=== PATIENT | female | born 1960 | race Caucasian/White ===

== ENCOUNTER → 2017-11-03 | Outpatient (REF) | payer OTHER | LOC: M SFHCWAGY 17:00 | DX: N76.6 Ulceration of vulva (principal) ==

== ENCOUNTER → 2018-02-03 | Outpatient (CLI) | payer OTHER | LOC: M WHC 10:36 | DX: Z12.31 Encounter for screening mammogram for malignant neoplasm of breast (principal); Z80.0 Family history of malignant neoplasm of digestive organs; Z80.41 Family history of malignant neoplasm of ovary | CPT/HCPCS: 77067 ==

== ENCOUNTER → 2018-02-03 | Outpatient (REF) | payer OTHER ==
[2018-02-06 10:12] LABS: HPV HYBRID CAPTURE II Positive (Negative)
== END ==
LOC: M SFHCWAGY 11:03
DX: Z12.4 Encounter for screening for malignant neoplasm of cervix (principal)

== ENCOUNTER 2018-02-05 11:59 | Day surgery (SDC) | payer OTHER ==
[2018-02-05] MEDS ORDERED: MIDAZOLAM INJ 2 MG/2 ML VIAL (J2250) As Ordered (12:08)
[2018-02-05] MEDS ORDERED: fentaNYL 100 MCG/2 ML INJECTION (J3010) As Ordered (12:08)
[2018-02-05] MEDS ORDERED: PROPOFOL 200 MG/20 ML VIAL As Ordered (12:08)
[2018-02-05] MEDS ORDERED: LIDOCAINE 2% INJ 100 MG/5 ML SDV (FOR ANES.) As Ordered (12:08)
[2018-02-05 12:36] LABS: HEMATOCRIT 43.2 % (36.0-47.0); HEMOGLOBIN 14.1 g/dl (12.0-15.5); MEAN CORPUSCULAR HEMOGLOBIN 30.9 pg (27.0-33.0); MEAN CORPUSCULAR HGB CONC 32.6 g/dl (32.0-36.5); MEAN CORPUSCULAR VOLUME 94.7 fl (80.0-96.0); PLATELET COUNT, AUTOMATED 289 10^3/uL (150-450); RED BLOOD COUNT 4.56 10^6/uL (4.00-5.40); RED CELL DISTRIBUTION WIDTH 13.8 % (11.5-14.5); WHITE BLOOD COUNT 10.1 10^3/uL (4.0-10.0)
[2018-02-05] MEDS: LR 1,000 ML IV (12:51)
[2018-02-05] MEDS ORDERED: ONDANSETRON 4MG/2ML VIAL (J2405) As Ordered (13:33)
[2018-02-05] MEDS ORDERED: KETOROLAC 60 MG/2 ML VIAL (J1885) As Ordered (13:33)
[2018-02-05] MEDS ORDERED: dexameTHASONE 4 MG/ML 1ML VIAL (J1100) As Ordered (13:47)
[2018-02-05] MEDS ORDERED: SUCCINYLCHOLINE 100 MG/5 ML SYRINGE (J0330) As Ordered (13:47)
[2018-02-05] MEDS ORDERED: fentaNYL 100 MCG/2 ML INJECTION (J3010) IV (14:30)
[2018-02-05] MEDS ORDERED: ONDANSETRON 4MG/2ML VIAL (J2405) IV (14:30)
[2018-02-05] MEDS ORDERED: PERCOCET 5MG/325MG TAB PO ×2 (14:30)
[2018-02-05] MEDS ORDERED: MEPERIDINE INJ 25 MG/ML VIAL (J2175) IV (14:30)
[2018-02-05] MEDS ORDERED: LR 1,000 ML IV (14:30)
[2018-02-05] MEDS ORDERED: METOCLOPRAMIDE INJ 10MG/2ML VIAL (J2765) IV (14:30)
[2018-02-05] MEDS: ALBUTEROL SULFATE 2.5 MG/0.5 ML INH NEB SOLN INH (14:38)
[2018-02-05] MEDS ORDERED: KETOROLAC 30 MG/ML VIAL (J1885) IV (20:00)
== END 2018-02-05 16:35 | disposition home or self-care (01) ==
LOC: M SDC 11:59
DX: N95.0 Postmenopausal bleeding (principal); N84.0 Polyp of corpus uteri; F45.8 Other somatoform disorders; F17.200 Nicotine dependence, unspecified, uncomplicated; M12.9 Arthropathy, unspecified; M54.2 Cervicalgia; Z98.51 Tubal ligation status; Z88.8 Allergy status to other drugs, medicaments and biological substances; Z79.899 Other long term (current) drug therapy
CPT/HCPCS: 58558

== ENCOUNTER → 2019-01-25 | Outpatient (CLI) | payer OTHER ==
[~2019-01-25] MED LIST: ARTH650T11 PO; BIOT50004 PO; DULC5TAB PO; ECHI500C5 PO; EXCETAB80 PO; MULT1TAB10 PO; VITA100067 PO; [UNRECOGNIZED DRUG - CODE] PO
--- NOTE | 2019-01-25 22:09 | ECGEPIP ---
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
== END ==
LOC: M EKG 08:53
PROVIDERS: ATTEND Orthopaedic Surgery Hand Surgery
DX: Z01.810 Encounter for preprocedural cardiovascular examination (principal)

== ENCOUNTER → 2019-07-20 | Outpatient (CLI) | payer OTHER ==
[~2019-07-20] MED LIST changes: -ARTH650T11 PO; +ARTH650T4 PO
--- NOTE | 2019-07-21 07:49 | REPMRS ---
Patient History The patient states she had a clinical breast exam in June 2019.Family history of ovarian cancer in mother, ovarian cancer in sister, colorectal cancer at age 82 in maternal grandmother, ovarian cancer in niece. Digital Woman Screen Mammo: July 20, 2019 - Exam #: [id number] Bilateral CC and MLO view(s) were taken. Technologist: Mildred Villatoro, Technologist Prior study comparison: February 03, 2018, bilateral digital woman screen mammo performed at [facility]. August 30, 2015, digital woman screen mammo performed at [facility]. July 19, 2013, digital woman screen mammo performed at [facility]. FINDINGS: There are scattered fibroglandular densities. There has been no change in the appearance of the mammogram from the prior studies. There is a mild amount of scattered fibroglandular density which is fairly symmetric. There is no interval development of dominant mass, architectural distortion, or grouped microcalcification suggestive of malignancy. 3-D tomosynthesis shows no additional findings. Assessment: BI-RADS/ACR category 1 mammogram. Negative Mammogram. Recommendation Routine screening mammogram of both breasts in 1 year (for women over age 40). This patient's Lifetime Breast Cancer Risk is estimated at 7.0 %. This mammogram was interpreted with the aid of an FDA-approved computer-aided dectection system. Electronically Signed By: Timmy Nascimento MD 07/20/19 [id number]
== END ==
LOC: M WHC 14:28
PROVIDERS: ATTEND Nurse Practitioner Family
DX: Z12.31 Encounter for screening mammogram for malignant neoplasm of breast (principal); Z80.41 Family history of malignant neoplasm of ovary; Z80.0 Family history of malignant neoplasm of digestive organs

== ENCOUNTER → 2019-07-20 | Outpatient (REF) | payer OTHER | LOC: M SFHCWAGY 10:45 | PROVIDERS: ATTEND Nurse Practitioner Family | DX: Z12.4 Encounter for screening for malignant neoplasm of cervix (principal) ==

== ENCOUNTER → 2020-10-10 | Outpatient (CLI) | payer OTHER ==
[~2020-10-10] MED LIST changes: +ARTH650T11 PO; -ARTH650T4 PO
--- NOTE | 2020-10-10 11:04 | REPMRS ---
Patient History The patient states she had a clinical breast exam in September 2020. Family history of ovarian cancer in mother, ovarian cancer in sister, colorectal cancer at age 82 in maternal grandmother, ovarian cancer in niece. Patient states no breast complaints today. Patient has signed MRS History Sheet. Digital Woman Screen Mammo: October 10, 2020 - Exam #: [id number] Bilateral CC and MLO view(s) were taken. Technologist: Meka Coombs, Technologist Prior study comparison: July 20, 2019, bilateral digital woman screen mammo performed at [facility]. February 03, 2018, bilateral digital woman screen mammo performed at [facility]. August 30, 2015, digital woman screen mammo performed at [facility]. FINDINGS: There are scattered fibroglandular densities. The [place] volumetric breast density category is:B. There has been no change in the appearance of the mammogram from the prior studies. There is a mild amount of scattered fibroglandular density which is fairly symmetric. There is no interval development of dominant mass, architectural distortion, or grouped microcalcification suggestive of malignancy. 3-D tomosynthesis shows no additional findings. Assessment: BI-RADS/ACR category 1 mammogram. Negative Mammogram. Recommendation Routine screening mammogram of both breasts in 1 year (for women over age 40). This patient's [facility] Lifetime Breast Cancer Risk is estimated at 6.7 %. This mammogram was interpreted with the aid of an FDA-approved computer-aided dectection system. Electronically Signed By: Timmy Nascimento MD 10/10/20 [id number]
== END ==
LOC: M WHC 09:49
PROVIDERS: ATTEND Nurse Practitioner Women's Health
DX: Z12.31 Encounter for screening mammogram for malignant neoplasm of breast (principal); Z80.41 Family history of malignant neoplasm of ovary; Z80.8 Family history of malignant neoplasm of other organs or systems

== ENCOUNTER → 2020-10-10 | Outpatient (REF) | payer OTHER | LOC: M SFHCWAGY 13:10 | PROVIDERS: ATTEND Nurse Practitioner Women's Health | DX: Z12.4 Encounter for screening for malignant neoplasm of cervix (principal) ==

== ENCOUNTER → 2021-03-21 | Outpatient (CLI) | payer OTHER ==
--- NOTE | 2021-03-21 15:05 | REP ---
INDICATION: NATALIIA PAIN IN SHOULDER, LUMBAGO SCIATICA NATALIIA. COMPARISON: None. TECHNIQUE: Coronal oblique T1, T2 fat sat, sagittal oblique T2 fat sat, axial T2 fat sat, gradient echo. FINDINGS: Rotator cuff: There is moderate tendinopathy/tendinitis of the supraspinatus tendon with partial bursal surface and undersurface tearing. There may be a small full-thickness partial tear. There is subscapularis tendinopathy/tendinitis with a probable partial tear of the anterior distal tendon. Acromioclavicular joint: There are mild hypertrophic degenerative changes of the acromioclavicular joint with mild fluid in the joint. Acromion: Type 2 Biceps Tendon: In bicipital groove, there is a small amount of surrounding fluid. Hill Sach's deformity: None. Deltoid muscle: No abnormal signal. Biceps labral complex: There is a complex tear of the biceps labral complex. Labrum: There is a SLAP tear. There is fraying of the anterior inferior glenoid labrum. Cartilage: There is mild chondromalacia at the glenohumeral joint. Bone marrow: No abnormal signal. Joint fluid: There is a small joint effusion, with a small amount of fluid in the subacromial/subdeltoid bursae. IMPRESSION: Moderate tendinopathy/tendinitis of the supraspinatus tendon with partial bursal surface and undersurface tearing. There may be a small full-thickness partial tear. Subscapularis tendinopathy/tendinitis with probable partial tear distally. Mild hypertrophic changes acromioclavicular joint, with mild fluid in the joint, with type 2 acromion. Complex tear biceps labral complex with a SLAP tear. There is fraying of the anterior inferior labrum. Small joint effusion with small amount of fluid in the subacromial/subdeltoid bursae. <Electronically signed by Alex Guzman > 03/21/21 [id number]
--- NOTE | 2021-03-21 15:14 | REP ---
INDICATION: NATALIIA PAIN IN SHOULDER, LUMBAGO SCIATICA NATALIIA. COMPARISON: None. TECHNIQUE: Coronal oblique T1, T2 fat sat, sagittal oblique T2 fat sat, axial T2 fat sat, gradient echo. FINDINGS: Rotator cuff: There is moderate diffuse tendinopathy/tendinitis of the supraspinatus tendon. There is a partial bursal surface tear of the tendon distally. There is mild subscapularis and infraspinatus tendinopathy/tendinitis. Acromioclavicular joint: There are mild hypertrophic degenerative changes of the acromioclavicular joint with mild fluid in the joint. Acromion: Type 2 Biceps Tendon: In bicipital groove, with mild surrounding fluid. Hill Sach's deformity: None. Deltoid muscle: No abnormal signal. Biceps labral complex: There is a tear of the biceps labral complex. Labrum: There is a tear of the anterior aspect of the superior labrum. Cartilage: There is mild chondromalacia at the glenohumeral joint. Bone marrow: Tiny subcortical cystic changes are seen in the superolateral humeral head. There is a benign appearing subcentimeter cyst centrally in the proximal shaft of the humerus. Joint fluid: There is a small joint effusion. There is a tiny amount of fluid in the subacromial/subdeltoid bursae. IMPRESSION: There is moderate diffuse tendinopathy/tendinitis of the supraspinatus tendon. There is a partial bursal surface tear of the tendon distally. There is mild subscapularis and infraspinatus tendinopathy/tendinitis.There are mild hypertrophic degenerative changes of the acromioclavicular joint with mild fluid in the joint. There is a tear of the biceps labral complex and adjacent anterior aspect of the superior labrum. Small joint effusion, with a tiny amount of fluid in the subacromial/subdeltoid bursae. <Electronically signed by Alex Guzman > 03/21/21 [id number]
--- NOTE | 2021-03-22 01:41 | REPVR ---
PROCEDURE INFORMATION: Exam: MR Lumbar Spine Without Contrast Exam date and time: 03/21/2021 1:59 PM Age: 60 years old Clinical indication: Low back pain; Prior surgery; Surgery date: 6+ months; Additional info: Ryan pain in shoulder, lumbago sciatica ryan TECHNIQUE: Imaging protocol: Multiplanar magnetic resonance images of the lumbar spine without intravenous contrast. COMPARISON: PELVIS NON-OB COMPLETE US 11/16/2017 9:52 AM FINDINGS: Vertebrae: Normal vertebral body alignment. Endplate degenerative changes at L5-S1. Mild marrow edema in the L5 pedicles, predominantly on the left. Advanced facet DJD in the lower lumbar spine. Spinal cord: Conus medullaris terminates in normal position at T12-L1. No conus compression. L1-L2: No disc herniation or spinal stenosis. No significant foraminal stenosis. L2-L3: No disc herniation or spinal stenosis. No significant foraminal stenosis. L3-L4: Mild disc desiccation. Minor disc bulge in the left neural foramen without significant foraminal stenosis. No disc herniation or spinal stenosis. L4-L5: Minor posterior disc bulging. No disc herniation or spinal stenosis. No significant foraminal stenosis. L5-S1: Severe degenerative disc space narrowing with loss of disc height and endplate degenerative changes. Left paracentral disc protrusion and annulus tear causing left lateral recess stenosis and mass effect on the S1 nerve root. Mild bilateral foraminal stenosis. Soft tissues: Unremarkable. IMPRESSION: 1. Advanced disc degeneration and facet DJD at L5-S1. Left paracentral disc protrusion with annulus tear at L5-S1 causing impingement of the left S1 nerve root in the lateral recess. 2. Mild L5-S1 foraminal stenosis. Electronically signed by: Enzo Coats On 03/22/2021 01:41:05 AM
== END ==
LOC: M PLAIMG 13:17
PROVIDERS: ATTEND Nurse Practitioner Family
DX: M51.37 Other intervertebral disc degeneration, lumbosacral region (principal); M51.36 Other intervertebral disc degeneration, lumbar region; M51.26 Other intervertebral disc displacement, lumbar region; M51.27 Other intervertebral disc displacement, lumbosacral region; M48.07 Spinal stenosis, lumbosacral region; S43.431A Superior glenoid labrum lesion of right shoulder, initial encounter; S43.432A Superior glenoid labrum lesion of left shoulder, initial encounter; X58.XXXA Exposure to other specified factors, initial encounter; Y92.9 Unspecified place or not applicable; Y93.9 Activity, unspecified; Y99.9 Unspecified external cause status; M25.411 Effusion, right shoulder; M75.21 Bicipital tendinitis, right shoulder; M75.22 Bicipital tendinitis, left shoulder; M25.412 Effusion, left shoulder; M54.41 Lumbago with sciatica, right side; M54.42 Lumbago with sciatica, left side